=== PATIENT | female | born 2000 | race Two or more races ===

== ENCOUNTER 2024-11-12 18:23 | Inpatient (IN) | payer MEDICAID, SELFPAY ==
[2024-11-12] VITALS (7 sets, daily range): BP systolic 110–123; BP diastolic 72–79; PULSE 56–78; RESP 16–100; TEMP 36.9–37; BMI 28.8
[2024-11-12 19:01] LABS: ROM Kit Lot # 57807903; ROM Swab Mixed By: WORMR; Rupture of Fetal Membranes Positive (Negative); Swb Mxed in Solvent 1 min? Yes
--- NOTE | 2024-11-12 19:54 | ESHP_ITS ---
RE: ESTEFANI RUCKER : 2000 DATE OF ADMISSION: 11/12/2024 HISTORY OF PRESENT ILLNESS: This is a 24-year-old 1, para 0 with due date of 11/13/2024 with intrauterine at 39 weeks and 6 days who presents to labor and delivery complaining of leaking fluid and is noted to be ruptured with cervix of 30 cm dilated. The patient reports contraction. She denies any bleeding. She reports normal movement. Her care was complicated by iron deficiency anemia. ALLERGIES: NO KNOWN DRUG ALLERGIES. MEDICATIONS: 1. multivitamin 1 p.o. daily. 2. Ferrous sulfate 325 mg one p.o. b.i.d. 3. Aspirin 81 mg one p.o. daily. PAST SURGICAL HISTORY: Bariatric surgery, gastric sleeve in 2020, tonsillectomy. PAST MEDICAL HISTORY: Gastric sleeve surgery, iron deficiency anemia. FAMILY HISTORY: Diabetes. REVIEW OF SYSTEMS: She denies any headache, change in vision or right upper quadrant pain. She denies any chest pain, palpitations, shortness of breath or lower extremity pain. PHYSICAL EXAMINATION: VITAL SIGNS: Blood pressure 113/61, heart rate 88, respirations 18, temperature is 98.2 degrees, weight is 168 pounds. HEENT: Oropharynx and sclerae are clear. LUNGS: Clear to auscultation bilaterally. HEART: Regular rate and rhythm. ABDOMEN: Gravid, consistent with estimated weight of 7.5 pounds. PELVIC: See RN notes. EXTREMITIES: Nontender. SKIN: No gross rashes or lesions. NEUROLOGIC: No focal deficit. ASSESSMENT AND PLAN: Intrauterine at 39 weeks and 6 days. Spontaneous rupture of membranes, early labor. Anticipate spontaneous vaginal delivery. Informed consent was obtained. The patient was made aware of the risks, complications, alternatives and benefits of the proposed procedure and she agrees. She is aware of the risk of operative vaginal delivery and delivery and agrees with these modes of delivery if indicated. DT: 19:21:39 TT: 19:52:00 Ref: [id number] - TID: [id number] MTDD
[2024-11-12 19:55] LABS: Basophils # (Auto) 0.1 Thou/mm3 (0.0-0.2); Basophils % (Auto) 0 % (0-2.5); Eosinophils # (Auto) 0.1 Thou/mm3 (0.0-0.5); Eosinophils % (Auto) 1 % (0-10); Hemoglobin 11.4 g/dL (12.0-16.0); Immature Granulocytes % (Auto) 1 % (0-0); Immature Granulocytes Auto 0.06 Thou/mm3 (0.00-0.00); Lymphocytes # (Auto) 3.4 Thou/mm3 (1.0-4.8); Lymphocytes % (Auto) 30 % (10-50); Mean Corpuscular HGB Conc 33.5 g/dl (31.0-37.0); Mean Corpuscular Volume 87 fL (80-100); Monocytes # (Auto) 0.9 Thou/mm3 (0.0-0.8); Monocytes % (Auto) 8 % (0-12); Neutrophils # (Auto) 6.7 Thou/mm3 (1.8-7.7); Neutrophils % (Auto) 60 % (37-80); Nucleated Red Blood Cell % 0 /100 WBC (0); Platelet Count 213 Thou/mm3 (140-440); RDW Standard Deviation 48.8 fL (36.4-46.3); Red Blood Count 3.93 Miln/mm3 (4.00-5.20); White Blood Count 11.2 Thou/mm3 (3.6-11.0)
[2024-11-12] MEDS: RINGERS LACTATED 1000 ML 1,000 ML 100 ML IV (20:16)
[2024-11-12 20:31] LABS: Syphilis Nonreactive (Nonreactive)
[2024-11-13] VITALS (80 sets, daily range): BP systolic 0–136; BP diastolic 0–95; PULSE 53–120; RESP 16–18; TEMP 36.7–37.3; O2SAT 82–100
[2024-11-13] MEDS: RINGERS LACTATED 1000 ML 1,000 ML 100 ML IV (04:45)
[2024-11-13] MEDS: OXYTOCIN in NS 30 units 30 UNIT/500 ML BAG IV (10:07)
[2024-11-13] MEDS: GENTAMICIN/NS 100 MG IVPB 100 MG/100 ML BAG 200 MG IV ×4 (11:30→13:10)
[2024-11-13] MEDS: Ampicillin Inj 2,000 MG in SODIUM CHLORIDE 0.9% (POP) 100 ML 100 MG IV ×2 (13:50→19:53)
[2024-11-13] MEDS: MINERAL OIL 30 ML UDC TOP (15:15)
[2024-11-13] MEDS: OXYTOCIN in NS 20 units 20 UNIT/1,000 ML BAG 125 UNIT IV (15:20)
[2024-11-13] MEDS: LIDOCAINE HCL 1% 20 ML VIAL INFL (15:25)
[2024-11-13] MEDS: METHYLERGONOVINE INJ 0.2 MG/ML VIAL IM (15:28)
[2024-11-13] MEDS: BENZO/LANO/ALOE (Dermoplast) 60 GM CAN 1 SPRAY TOP (15:35)
--- NOTE | 2024-11-13 15:40 | ESDS_ITS ---
DS: Providers Provider Date of admission: 11/12/24 18:23 Primary care physician: Physician No Primary/Family Admitting Provider: Dennis Hodgson MD Attending Provider on Admission: Dennis Hodgson MD Attending Provider on DC: Dennis Hodgson MD Discharging Provider: Dennis Hodgson MD DS: Diagnosis Problem List Completed Was Problem List Reviewed/Reconciled?: Yes Summary/Hosp Course Time Spent with Patient Time attestation: Total time spent providing and/or coordinating discharge services: Exam Vital Signs Temp Pulse Resp BP Pulse Ox O2 Del Method 99.0 F 73 16 120/73 100 Room Air 11/13/24 13:00 11/13/24 15:32 11/13/24 12:08 11/13/24 15:32 11/13/24 15:39 11/12/24 20:00 Discharge Plan Plan Patient Disposition: HOME (Self Care) Patient condition on transfer: Stable Prescriptions/Referrals Prescriptions/Med Rec: New amoxicillin-pot clavulanate 875-125 mg tablet 1 tab PO Q12H Qty: 10 0RF ibuprofen 600 mg tablet 600 mg PO Q6H PRN (Reason: pain) Qty: 20 0RF Continued Vitamin 27 mg iron- 800 mcg tablet Patient Comments: TOME 1 TABLETA POR V A ORAL TODOS LOS D Discontinued aspirin 81 mg tablet,delayed release (DR/EC) 81 mg PO DAILY Patient Comments: TOME 1 TABLETA POR V A ORAL TODOS LOS D ferrous sulfate 325 mg (65 mg iron) tablet 325 mg PO DAILY Patient Comments: TAKE 1 TABLET BY MOUTH ONCE EVERY DAY aspirin 81 mg tablet,delayed release (DR/EC) 81 mg PO QDAY Patient Comments: TOME 1 TABLETA POR V A ORAL TODOS LOS D Vitamin 27 mg iron- 800 mcg tablet 1 tab PO QDAY Patient Comments: TOME 1 TABLETA POR V A ORAL TODOS LOS D Referrals: No Primary/Family,Physician [Primary Care Provider] - Patient/Caregiver Discharge Instructions Discharge Activity: activity as tolerated Other Discharge Activity Instructions:: Follow up office 6 weeks. Education Materials: After a Vaginal , Breast Care After Print Language: Setswana Stand Alone Forms: [facility] Award Info., Patient Portal Info Letter Discharge Order Discharge Orders: Discharge (Routine); Ordered 11/15/24 Ordered By: Dennis Hodgson Planned Discharge Date 11/15/2024
--- NOTE | 2024-11-13 17:08 | OBDSUM_ITS ---
Data ([facility]) Data : 1 Para: 0 Term: 0 : 0 : 0 Delivery Data ([facility]) Labor Data ROM Date: 11/12/24 ROM Time: 16:00 Rupture Type: SROM Delivery Data EDC: 11/13/24 EDC calculated by:: LMP/early US confirmation Labor Onset Stage 1 Date: 11/13/24 Labor Onset Stage 1 Time: 03:14 Labor Onset Stage 2 Date: 11/13/24 Labor Onset Stage 2 Time: 15:00 Delivery Date: 11/13/24 Delivery Time: 15:18 Gestational age (weeks): 40 Gestational age (days): 0 Placenta Delivery Date: 11/13/24 Placenta Delivery Time: 15:20 Delivered by: Dennis Hodgson Delivery nurse: Fang Boykin Other staff at delivery: Nurse Other staff at delivery: Kim Otero Delivery Method Delivery: Vaginal Delivery Type: Spontaneous Presentation: Vertex Position: OA Anesthesia Type Primary Anesthesia: None Delivery Room Medications Other Intrapartum Medications: Yes Placenta Placenta Delivery: Spontaneous Placenta Cultures Obtained: No Placenta Sent for Examination: Yes Lacerations #1: Perineal: 2nd degree #2: Labial: left 2nd degree Perineal repair Sutures used for repair: 3.0 Chromic EBL Estimated blood loss (ml): 250 Additional Procedures None Complications Complications: Uterine atony [place] Data ([facility]) [place] Data Gender: Female Weight Grams: 3200 1 Minute Total: 9 5 Minute Total: 9
[2024-11-13 21:35] LABS: Gentamicin, Random 1.1 mcg/mL (4.0-10.0)
[2024-11-13 21:37] LABS: Basophils % (Auto) 0 % (0-2.5); Eosinophils % (Auto) 0 % (0-10); Hematocrit 33.3 % (36.0-46.0); Hemoglobin 11.1 g/dL (12.0-16.0); Immature Granulocytes % (Auto) 1 % (0-0); Lymphocytes # (Auto) 1.4 Thou/mm3 (1.0-4.8); Lymphocytes % (Auto) 7 % (10-50); Mean Corpuscular HGB Conc 33.3 g/dl (31.0-37.0); Mean Corpuscular Hemoglobin 29.2 pg (25.0-35.0); Mean Corpuscular Volume 88 fL (80-100); Monocytes # (Auto) 0.8 Thou/mm3 (0.0-0.8); Monocytes % (Auto) 4 % (0-12); Neutrophils # (Auto) 16.8 Thou/mm3 (1.8-7.7); Neutrophils % (Auto) 88 % (37-80); Nucleated Red Blood Cell % 0 /100 WBC (0); Platelet Count 182 Thou/mm3 (140-440); RDW Standard Deviation 49.4 fL (36.4-46.3); White Blood Count 19.2 Thou/mm3 (3.6-11.0)
[2024-11-14] MEDS: Ampicillin Inj 2,000 MG in SODIUM CHLORIDE 0.9% (POP) 100 ML 100 MG IV ×4 (00:59→18:24)
[2024-11-14 04:34] VITALS: BP 96/66; RESP 19; TEMP 37; O2SAT 97
[2024-11-14] MEDS: bisacodyL 10 MG SUPP PR (08:33)
[2024-11-14 08:45] VITALS: BP 116/71; PULSE 66; RESP 20; TEMP 36.9; O2SAT 97
--- NOTE | 2024-11-14 09:16 | ESPR_ITS ---
RE: ESTEFANI RUCKER : 2000 DATE OF SERVICE: 11/14/2024 S: day #1, the patient denies any problem or complaints. She is voiding. She is ambulating. She tolerated regular diet. She is passing flatus. She desires something for constipation. She denies any excessive vaginal bleeding. She denies any dizziness or lightheadedness. She denies any chest pain, palpitations, shortness of breath, or lower extremity pain. O: Vital Signs: Blood pressure is 96/66, heart rate 89, respirations 18, temperature 98.6, and pulse ox is 97% on room air. Lungs: Clear to auscultation bilaterally. Heart: Regular rate and rhythm. Abdomen: Fundus is firm, nontender. Extremities: Nontender. Laboratory Data: Hemoglobin pre-delivery is 11.4 and post delivery 11.1. A: 1. day #1, status post spontaneous vaginal delivery. 2. Chorioamnionitis. 3. Presumptive endometritis. P: Continue ampicillin and gentamicin until discharge. Dulcolax for constipation. DT: 07:32:58 TT: 09:14:00 Ref: [id number] - TID: [id number]
[2024-11-14 12:15] VITALS: BP 109/66; PULSE 62; RESP 16; TEMP 36.8; O2SAT 97
[2024-11-14] MEDS: GENTAMICIN/NS 100 MG IVPB 100 MG/100 ML BAG 200 MG IV (13:18)
[2024-11-14 15:40] VITALS: BP 112/68; PULSE 60; RESP 16; TEMP 36.7; O2SAT 100
[2024-11-14 19:50] VITALS: BP 101/60; PULSE 75; RESP 18; TEMP 37; O2SAT 97
[2024-11-15] MEDS: Ampicillin Inj 2,000 MG in SODIUM CHLORIDE 0.9% (POP) 100 ML 100 MG IV ×2 (00:25→05:48)
[2024-11-15 05:20] LABS: Basophils # (Auto) 0.1 Thou/mm3 (0.0-0.2); Basophils % (Auto) 0 % (0-2.5); Eosinophils # (Auto) 0.2 Thou/mm3 (0.0-0.5); Eosinophils % (Auto) 1 % (0-10); Hematocrit 31.6 % (36.0-46.0); Hemoglobin 10.5 g/dL (12.0-16.0); Immature Granulocytes % (Auto) 1 % (0-0); Lymphocytes # (Auto) 3.8 Thou/mm3 (1.0-4.8); Lymphocytes % (Auto) 25 % (10-50); Mean Corpuscular HGB Conc 33.2 g/dl (31.0-37.0); Mean Corpuscular Hemoglobin 28.9 pg (25.0-35.0); Mean Corpuscular Volume 87 fL (80-100); Monocytes # (Auto) 1.2 Thou/mm3 (0.0-0.8); Monocytes % (Auto) 8 % (0-12); Neutrophils # (Auto) 9.8 Thou/mm3 (1.8-7.7); Neutrophils % (Auto) 65 % (37-80); Nucleated Red Blood Cell % 0 /100 WBC (0); Platelet Count 195 Thou/mm3 (140-440); RDW Standard Deviation 50.8 fL (36.4-46.3); Red Blood Count 3.63 Miln/mm3 (4.00-5.20); White Blood Count 15.1 Thou/mm3 (3.6-11.0)
[2024-11-15 05:30] VITALS: BP 114/68; PULSE 65; RESP 17; TEMP 36.8; O2SAT 98
[2024-11-15 08:29] VITALS: BP 100/62; PULSE 68; RESP 18; TEMP 36.9; O2SAT 97
--- NOTE | 2024-11-15 11:33 | ESPR_ITS ---
RE: ESTEFANI RUCKER : 2000 DATE OF SERVICE: 11/15/2024 S: day 2, the patient denies any problem or complaints. She is voiding. She is ambulating. She is tolerating regular diet. She is passing flatus. She denies any excessive vaginal bleeding. She denies any dizziness or lightheadedness. She denies any chest pain, palpitations, or shortness of breath or lower extremity pain. She had a bowel movement with Dulcolax. She denies any depression or anxiety. O: Vital Signs: Blood pressure is 114/68, heart rate 65, respirations 17, temperature is 98.2, pulse ox is 98% on room air. Lungs: Clear to auscultation bilaterally. Heart: Regular rate and rhythm. Abdomen: Fundus is firm. Nontender. Extremities: Nontender. LABORATORY DATA: Hemoglobin is 10.5, white blood cell count is 15.1. ASSESSMENT: day 2 status post spontaneous vaginal delivery complicated by chorioamnionitis, presumptive endometritis. P: Discharge home on Augmentin for 5 days. Follow up in the office in 6 weeks. Discharge instructions given. DT: 08:05:03 TT: 11:24:00 Ref: [id number] - TID: [id number] [facility]
== END 2024-11-15 09:49 | disposition home or self-care (01) | DRG 560 ==
LOC: S4SX 11-13 17:19 → S4NX 11-13 18:10
PROVIDERS: Admitting Provider Specialist; Visit Provider Specialist
DX: O42.02 Full-term premature rupture of membranes, onset of labor within 24 hours of rupture (principal); O70.1 Second degree perineal laceration during delivery; Z37.0 Single live birth; Z3A.39 39 weeks gestation of pregnancy; O62.2 Other uterine inertia; O99.02 Anemia complicating childbirth; D50.9 Iron deficiency anemia, unspecified; O41.1230 Chorioamnionitis, third trimester, not applicable or unspecified; O99.844 Bariatric surgery status complicating childbirth; O86.12 Endometritis following delivery; K59.00 Constipation, unspecified; O99.63 Diseases of the digestive system complicating the puerperium
CPT/HCPCS: 36415; 80170; 84112; 85025; 86780; 86850; 86900; 86901; J0290; J1580; J2210; J2590; J3490; J7120; A9270